=== PATIENT | male | born 1970 | race Caucasian/White ===

== ENCOUNTER 2024-05-24 20:10 | Emergency (ER) | payer MEDICAID ==
[~2024-05-24] VITALS: Ht 162.6 cm; Wt 50.0 kg
[2024-05-24 20:14] VITALS: O2SAT 100
[2024-05-24] MEDS: LISINOPRIL 5MG TABLET PO ONE (23:05)
[2024-05-24 23:12] LABS: BASOPHILS % 0.3 % (0.0-2.0); EOSINOPHILS % 2.6 % (0.0-5.0); HEMOGLOBIN. 13.3 g/dL (14.0-18.0); LYMPHOCYTES % 40.7 % (20.0-50.0); MEAN CORPUSCULAR VOLUME 88.2 fL (80.0-94.0); MEAN PLATELET VOLUME 8.2 fl (7.4-10.4); MONOCYTES % 6.8 % (2.0-8.0); NEUTROPHILS % 49.6 % (40.0-76.0); PLATELET 188 x1000/uL (130-400); RED BLOOD CELL COUNT 4.42 mill/uL (4.7-6.1); RED CELL DISTRIBUTION WIDTH 13.5 % (11.6-14.6); WHITE BLOOD COUNT 4.6 x1000/uL (4.5-11.0)
[2024-05-24 23:16] LABS: CHLORIDE 106 mEq/L (98-107); POTASSIUM 3.3 mEq/L (3.5-5.1); SODIUM 137 mEq/L (136-145)
[2024-05-24 23:17] LABS: CALCIUM 8.6 mg/dL (8.7-10.4); CARBON DIOXIDE 25 mEq/L (21-32)
[2024-05-24] MEDS: METFORMIN HCL 500MG TABLET PO NR (23:18)
[2024-05-24] MEDS: ACETAMINOPHEN 325MG TABLET PO NR (23:19)
[2024-05-24] MEDS: LISINOPRIL 5MG TABLET PO NR (23:19)
[2024-05-24 23:20] LABS: INR 0.9; PROTHROMBIN TIME 10.5 sec (9.6-11.0)
[2024-05-24 23:22] LABS: CREATININE 0.7 mg/dL (0.6-1.3); GLUCOSE 262 mg/dL (70-105); UREA NITROGEN BLOOD 15 mg/dL (9-23)
[2024-05-24 23:24] LABS: ALANINE AMINOTRANSFERASE 21 IU/L (10-49); ALBUMIN 3.6 g/dL (3.2-4.8); ASPARTATE AMINOTRANSFERASE 18 IU/L (<34); BILIRUBIN DIRECT 0.1 mg/dL (<=3.0); PHOSPHORUS 3.6 mg/dL (2.5-4.9); PROTEIN TOTAL 6.2 g/dL (6.0-8.3)
[2024-05-24 23:37] LABS: BILIRUBIN TOTAL 0.6 mg/dL (0.1-1.0)
[2024-05-25] MEDS: POTASSIUM CHLORIDE 20MEQ TABLET SR PO NR (04:55)
[2024-05-25] MEDS: CALCIUM GLUCONATE 100MG/ML 10ML VIAL IV NR (05:15)
[2024-05-25] MEDS: MAGNESIUM 1 G PREMIX 100 ML IV NR (06:24)
[2024-05-25 09:30] VITALS: BP 100/62; PULSE 70; RESP 15; TEMP 37; O2SAT 98
[2024-05-25] MEDS ORDERED: IPRATROPIUM/ALBUTEROL 0.5-3(2.5)MG/3ML NEB HHN PRN (11:45)
[2024-05-25] MEDS ORDERED: CLONIDINE 0.1MG TABLET PO PRN (11:45)
[2024-05-25] MEDS ORDERED: GUAIFENESIN 200MG/10ML SUGAR FREE UDC PO PRN (11:45)
[2024-05-25] MEDS ORDERED: ACETAMINOPHEN 325MG TABLET PO PRN ×2 (11:45)
[2024-05-25] MEDS ORDERED: ONDANSETRON HCL 4MG/2ML INJ IV PRN (11:45)
[2024-05-25] MEDS ORDERED: DOCUSATE SODIUM 100MG CAPSULE PO PRN (11:45)
[2024-05-25] MEDS ORDERED: MAGNESIUM/ALUMINUM HYDROXIDE/SIMETHICONE 30ML UDC PO PRN (11:45)
[2024-05-25] MEDS ORDERED: DEXTROSE 50% WATER 50ML SYRINGE IV PRN (11:45)
[2024-05-25] MEDS ORDERED: BLOOD SUGAR DIAGNOSTIC STRIP TEST SCH (13:00)
[2024-05-25] MEDS ORDERED: INSULIN LISPRO 100 UNITS/ML SUBCUT SCH (13:20)
[2024-05-26] MEDS ORDERED: AMLODIPINE 5MG TABLET PO SCH (09:00)
== END 2024-05-25 14:25 | disposition left against medical advice (07) ==
LOC: ER 20:10
DX: E11.65 Type 2 diabetes mellitus with hyperglycemia (principal); E83.42 Hypomagnesemia; E83.51 Hypocalcemia; E87.6 Hypokalemia; I10 Essential (primary) hypertension; Z79.4 Long term (current) use of insulin; Z79.899 Other long term (current) drug therapy; Z91.148 Patient's other noncompliance with medication regimen for other reason
CPT/HCPCS: 80076; 80048; 82962 ×2; 83690; 83735; 84100; 85025; 85610; 36415; 71045; 93005; 99285; 70450; 96365; 96375; J0610; J3475